=== PATIENT | female | born 1985 | race Caucasian/White ===

== ENCOUNTER 2017-08-07 12:45 | Emergency (ER) | payer MEDICAID ==
[~2017-08-07] VITALS: Ht 162.6 cm; Wt 81.6 kg
[~2017-08-07 12:45] MED LIST: BENTYL10 MG PO; BROMFED DM COU118 ML PO; CIPRO 250MG TA250 MG PO; CIPRO 500MG TA500 MG PO; CITALOPRAM HYDR20 MG PO; CLARITIN 10MG T10 MG PO; FLONASE 50 MCG16 GM; GABAPENTIN 600600 MG PO; IBU800 MG PO; IBUPROFEN800 MG PO; KEFLEX 500MG.500 MG PO; KEFLEX500 M1 PO; LORTAB 5/500 501 TAB PO; MEDROL 4MG. DOSE4 MG PO; NOMEDS; PYRIDIUM 200MG200 MG PO; SEPTRA DS 800 M1 TAB PO; SUMATRIPTAN SU100 M1 PO; TESSALON PERLE100 M1 PO; ZITHROMAX Z PA250 MG PO; ZOFRAN ODT4 MG PO
[2017-08-07 13:30] LABS: URINE BILIRUBIN - DIPSTICK NEGATIVE (NEG); URINE BLOOD NEGATIVE (NEG)
--- NOTE | 2017-08-07 13:33 | Emergency Room Report ---
History of Present Illness Time Seen by MD Sommer Presenting Problem in Triage Pt arrived:Walked Presenting Problem:PT REPORTS SHE BEGAN HAVING R SIDED LOWER BACK PAIN SUDDENLY AT WORK, STATES SHE BEGAN DIZZY FEELING AFTER THAT. STATES IS NO LONGER DIZZY CONTINUING TO HAVE INTERMITTENT R SIDED LOWER BACK PAIN Onset of symptoms date/time:08/07/17/ or onset unknown for:MEDICAL HX UNKNOWN Treatment Prior to Arrival: [employer] Provided by: Sepsis Risk Assessment: Temp: 98.4 B/P: 122/69 MAP: 86 Pulse: 84 Resp: 18 Recent fever? N Clinical Suspician of Infection? N Mental Status: 1 - Regular (Normal Baseline) Sepsis Risk:Low Sepsis Risk Have you (or family members/close friends) recently traveled outside the [place]? N If Yes, where/when: Have you had exposure to infectious disease within the past month? N TB? Other? Specify: Comment The patient complains of RIGHT sided flank pain. She says that she developed this today at work. She describes intermittent very brief pains that last only a few seconds but they come back several times a minute. She says this is a recurrent problem. She says she has had at least 4-5 episodes of this and it usually lasts 4-5 days. She says she initially saw her primary care physician and also has been to the emergency room. She has been worked up for gallbladder as well as kidney stones. She thinks it is been going on for 4-5 months, but review of her records here indicate that it has been longer than that. She got dizzy and sweaty with it today, which is unusual. ALLERGIES Coded Allergies: No Known Allergies (09/22/16) Home Medications Reported Medications No Known Home Medications History Medical History General CAD? No Angina: No PR: No Hypertension? No Hyperlipidemia? No CHF? No DVT? No PE? No COPD? No Asthma? No Anemia? No GERD? No Gastric ulcers? No GI Bleed? No Hernia? No Thyroid Problems? No Hypothyroidism? No CVA? No Seizures? No Diabetes? No Renal Insuffiency? No End Stage Renal Disease? No UTI? No Stones? No BPH? No GB Disease: No Nephritic Syndrome? No Asplenia? No Hepatitis? No Sickle Cell Disease? No Arthritis? No Migraines? No Cataracts? No Glaucoma? No MRSA? No HIV? No TB? No Anxiety? No Depression? Yes Cancer? No More? No Immunization Hx DT/Tetanus 07/09/2012 Surgical Hx Previous Surgery?Y WISDOM TEETH APPENDECTOMY X 1 IUD [employer] Hx LMP 1 Month Ago Family History Family Hx Diabetes No CAD No Hypertension Yes Hyperlipidemia No Cancer Yes TB No Social History Smoking Hx Smoker: Current Every Day Smoker Tobacco: Yes Type Cigarettes Packs/day < 1 Pack Alcohol Alcohol: Yes Additionial History Additional History The patient was seen in the urgent treatment center here on June 05 of this year for abdominal pain. She was seen December 10 for abdominal pain and had a negative CT scan. She had a gallbladder ultrasound done on March 17, 2016 that was negative. She was seen December 11, 2014 for flank pain. Review of Systems All Other Systems Reviewed and Negative Constitutional diaphoresis, denies fever Gastrointestinal denies abdominal pain, denies diarrhea, denies nausea, denies vomiting Musculoskeletal back pain Physical Exam Vital Signs Vital Signs Date Time Temp Pulse Resp B/P Pulse O2 O2 Flow FiO2 Ox Delivery Rate 08/07 1442 85 18 121/75 99 08/07 1252 98.4 84 18 122/69 96 General Appearance no apparent distress Eye Exam - bilateral eye normal exam, bilateral eye PERRL, bilateral eye EOMI Ear, Nose, Throat hearing grossly normal, normal ENT inspection Neck normal inspection, non-tender, supple, full range of motion Respiratory Status Yes: trachea midline, chest symmetrical, non tender chest. No: respiratory distress. Lung Sounds bilateral: normal breath sounds, lungs clear. Cardiovascular normal exam, regular rate/rhythm, no peripheral edema, no gallop, no JVD, no murmur, no rub, normal peripheral pulses Peripheral Pulses Pulses normal Yes Gastrointestinal normal bowel sounds, soft, no organomegaly, no guarding, no rebound, tenderness (RIGHT abdomen) Back normal inspection, CVA tenderness (R) Extremities non-tender, normal range of motion, normal inspection Neurologic alert, normal exam, oriented x 3 Mental status normal mood/affect Skin intact, normal color, warm/dry Medical Decision Making LABS/Meds/Orders Pt receiving controlled substance in ED? No Results/Orders Laboratory Tests 08/07/17 1350: Sodium 138, Potassium 3.6, Chloride 103, Carbon Dioxide 25, BUN 18, Creatinine 0.7, Estimated Creat Clear 149, Estimated GFR (MDRD) 97, Glucose 90, Calcium 9.0 , Total Bilirubin 0.4, AST 14 L, ALT 16, Alkaline Phosphatase 75, Total Protein 7.6, Albumin 4.1, Globulin 3.5 H, Albumin/Globulin Ratio 1.2, WBC 7.3, RBC 4.23 , Hgb 12.9, Hct 40.4, MCV 95.4, RDW 13.6, Plt Count 256, Gran % 66.2, Gran # 4.8 , Lymphocytes % 28.2, Monocytes % 5.6, Lymphocytes # 2.1, Monocytes # 0.4, PUBS MCHC 31.9, MCH 30.5 08/07/17 1250: Urine Color YELLOW, Urine Appearance CLEAR, Urine pH 5.5, Ur Specific [place] 1.025, Urine Protein NEGATIVE, Urine Ketones NEGATIVE, Urine Blood NEGATIVE, Urine Nitrate NEGATIVE, Urine Bilirubin NEGATIVE, Urine Urobilinogen 0.2, Ur Leukocyte Esterase NEGATIVE, Urine RBC NONE, Urine WBC 3-5, Ur Squamous Epith Cells 5-10, Urine Bacteria 3+, Urine Glucose NEGATIVE Current Medication Orders Sig/Ronny Start time Last Medication Dose Route Stop Time Status Admin Sodium Chloride 10 ML PRN PRN 08/07 1345 DCD IV 08/08 1337 Orders Procedure Date/time Status IV SALINE LOCK 08/07 1337 Active CBC WITH AUTO DIFF 08/07 1337 Complete CHEM 12 PROFILE 08/07 1337 Complete URINALYSIS/COMPLETE 08/07 1253 Complete URINE 08/07 1253 Complete CULTURE, URINE 08/07 1250 Active Progress - The patient has had prior workup for this which has been negative. Her urine does not show hematuria today, I do not feel she needs repeat CT scanning. Workup is unremarkable, I feel she can follow-up as an outpatient. Departure Departure Disposition DC Home or Self Care(routine) Clinical Impression Primary Impression: Right flank pain Condition STABLE Patient Instructions DI for Flank Pain Additional Instructions Off work today. Return to the emergency department if intolerable pain, vomiting, fever, abdominal pain. Prescriptions Current Visit Scripts No Known Home Medications ED Critical Care Critical Care No at 1125
[2017-08-07 14:03] LABS: HEMOGLOBIN 12.9 g/dL (12.2-16.2); LYMPH % 28.2 % (10-50.0)
[2017-08-07 14:04] LABS: LYMPH # 2.1 K/mm3 (0.7-4.5)
[2017-08-07 14:42] VITALS: BP 121/75
== END 2017-08-07 14:43 | disposition home or self-care (01) ==
LOC: ER 12:45
PROVIDERS: Emergency Medicine
DX: R10.11 Right upper quadrant pain (principal); R42 Dizziness and giddiness; F17.210 Nicotine dependence, cigarettes, uncomplicated